=== PATIENT | male | born 1965 | race African-American/Black ===

== ENCOUNTER 2017-02-22 11:09 | Emergency (ER) | payer MEDICAID ==
[~2017-02-22] VITALS: Ht 185.4 cm; Wt 147.7 kg
[~2017-02-22 11:09] MED LIST: ACYC-57 PO; ASPI325T4 PO; CARV6.252 PO; LISI-167 PO
[2017-02-22 11:10] VITALS: BP 144/92
[2017-02-22 12:11] LABS: BLOOD UREA NITROGEN 12 mg/dL (7-18)
== END 2017-02-22 12:45 | disposition home or self-care (01) ==
LOC: ED 12:30
DX: G89.29 Other chronic pain (principal); M54.42 Lumbago with sciatica, left side; M54.16 Radiculopathy, lumbar region; E78.00 Pure hypercholesterolemia, unspecified; E11.9 Type 2 diabetes mellitus without complications; I50.9 Heart failure, unspecified; I11.0 Hypertensive heart disease with heart failure; M19.90 Unspecified osteoarthritis, unspecified site
CPT/HCPCS: 36415; 80048; 85025; 99285

== ENCOUNTER 2017-04-10 05:36 | Emergency (ER) | payer MEDICAID ==
[~2017-04-10] VITALS: Ht 185.4 cm; Wt 149.4 kg
[~2017-04-10 05:36] MED LIST changes: +ASPI325T17 PO; -ASPI325T4 PO
[2017-04-10] MEDS ORDERED: SODIUM CHLORIDE 0.9% 1,000 ML IV ONE (06:08)
[2017-04-10] MEDS ORDERED: ONDANSETRON 2MG/ML, 2ML IVPush ONE (06:30)
[2017-04-10] MEDS ORDERED: MECLIZINE CHEWABLE 25 MG TAB PO ONE (06:30)
[2017-04-10] MEDS ORDERED: SODIUM CHLORIDE FLUSH 10ML SYR IVF ONE (06:30)
[2017-04-10] MEDS ORDERED: MECLIZINE CHEWABLE 25 MG TAB ONE (06:40)
[2017-04-10] MEDS ORDERED: ONDANSETRON 2MG/ML, 2ML ONE (06:40)
[2017-04-10 06:52] LABS: BLOOD UREA NITROGEN 13 mg/dL (7-18)
[2017-04-10 06:56] LABS: HEMATOCRIT 42.3 % (39.2-51.8); HEMOGLOBIN 13.6 g/dL (13.7-18.0); WHITE BLOOD COUNT 6.6 x10^3/uL (3.4-10)
[2017-04-10 07:51] LABS: IS PT STATUS REG ER OR PRE ER? YES
[2017-04-10 08:40] VITALS: BP 126/87
== END 2017-04-10 08:44 | disposition home or self-care (01) ==
LOC: ED 08:20
DX: R42 Dizziness and giddiness (principal); I10 Essential (primary) hypertension; E11.9 Type 2 diabetes mellitus without complications; E78.00 Pure hypercholesterolemia, unspecified
CPT/HCPCS: 36415; 71010; 80048; 82040; 83880; 84484; 85025; 93005; 96361; 96374; 99285; J2405; J7030

== ENCOUNTER 2017-05-18 11:53 | Emergency (ER) | payer MEDICAID ==
[~2017-05-18] VITALS: Ht 185.4 cm; Wt 148.6 kg
[2017-05-18] MEDS ORDERED: PROMETHAZINE/COD. 10MG/6.25MG/5 ML ORAL SOL PO PRN (14:30)
[2017-05-18 15:07] VITALS: BP 152/85
== END 2017-05-18 15:43 | disposition home or self-care (01) ==
LOC: ED 14:10
DX: R05 Cough (principal); J02.9 Acute pharyngitis, unspecified; J34.89 Other specified disorders of nose and nasal sinuses; I11.0 Hypertensive heart disease with heart failure; I50.9 Heart failure, unspecified; E11.9 Type 2 diabetes mellitus without complications
CPT/HCPCS: 99283

== ENCOUNTER → 2017-06-15 | Outpatient (CLI) | payer MEDICAID | LOC: CFH 12:35 | PROVIDERS: ATTEND Internal Medicine Cardiovascular Disease | DX: Z02.9 Encounter for administrative examinations, unspecified (principal) ==

== ENCOUNTER → 2018-02-14 | Outpatient (CLI) | payer MEDICAID | LOC: CVU 07:22 | PROVIDERS: ATTEND Nurse Practitioner Family | DX: I42.0 Dilated cardiomyopathy (principal); I51.7 Cardiomegaly | CPT/HCPCS: 93306 ==

== ENCOUNTER 2020-03-16 05:42 | Emergency (ER) | payer MEDICAID ==
[~2020-03-16] VITALS: Ht 185.4 cm; Wt 160.0 kg
[~2020-03-16 05:42] MED LIST changes: +ATOR40TA PO; +LISI-170 PO; +METF500T17 PO
[2020-03-16 05:53] VITALS: BP 101/55
[2020-03-16] MEDS ORDERED: DIPHENHYDRAMINE 50 MG/ML, 1ML ONE (06:28)
[2020-03-16] MEDS ORDERED: FAMOTIDINE 20 MG TABLET ONE (06:28)
[2020-03-16] MEDS ORDERED: FAMOTIDINE 20 MG TABLET PO ONE (06:30)
[2020-03-16] MEDS ORDERED: DIPHENHYDRAMINE 50 MG/ML, 1ML IM ONE (06:30)
== END 2020-03-16 06:52 | disposition home or self-care (01) ==
LOC: MERGE 05:42 → ED 06:50
DX: L50.0 Allergic urticaria (principal); I10 Essential (primary) hypertension; E11.9 Type 2 diabetes mellitus without complications
CPT/HCPCS: 96372; 99283; J1200; J7512

== ENCOUNTER 2020-05-27 12:43 | Emergency (ER) | payer MEDICAID ==
[~2020-05-27] VITALS: Ht 185.4 cm; Wt 168.2 kg
[2020-05-27 12:51] VITALS: BP 156/88
--- NOTE | 2020-05-27 14:00 | NUR ---
Report from Delbert [employer] Technician swab obtained for viral testing per protocol-sample walked to lab
--- NOTE | 2020-05-27 15:30 | NUR ---
SOLITARIO RN: ASSUMED CARE FOR DISCHARGE ONLY Patient/Caregiver given discharge instructions and they have confirmed that they understand the instructions. Patient ambulatory with steady gait.
== END 2020-05-27 15:33 | disposition home or self-care (01) ==
LOC: ED 14:13
DX: J00 Acute nasopharyngitis [common cold] (principal); Z20.818 Contact with and (suspected) exposure to other bacterial communicable diseases; R09.81 Nasal congestion; R09.89 Other specified symptoms and signs involving the circulatory and respiratory systems; G47.30 Sleep apnea, unspecified; I10 Essential (primary) hypertension; E11.9 Type 2 diabetes mellitus without complications
CPT/HCPCS: 36415; 87635; 99283